=== PATIENT | male | born 1975 | race Caucasian/White ===

== ENCOUNTER 2024-12-03 21:06 | Observation (INO) | payer BC, MEDICAID, SELFPAY ==
[2024-12-03 21:07] VITALS: BP 153/106; PULSE 86; RESP 18; TEMP 36.3; O2SAT 96
--- NOTE | 2024-12-03 21:19 | W.ED.ABDPA2 ---
HPI - Abdominal Pain General: Chief Complaint: Abdominal Pain Stated Complaint: POSSIBLE UTI Time Seen by Provider: 12/03/24 21:08 History of Present Illness: 49-year-old male with history of alcohol abuse and pancreatitis who presents the emergency room by ambulance from [facility] with abdominal pain. He says he was recently discharged from [place] with pancreatitis. He is continuing to have epigastric pain with no nausea or vomiting. He has not had anything to drink recently he says. No diarrhea. No chest pain. No altered mental status. No fevers. Related Data Home Medications ?Medication ?Instructions ?Recorded ?Confirmed buprenorphine 4 mg-naloxone 1 mg 1 film buccal Q24H 11/30/24 11/30/24 sublingual film (Suboxone) carvedilol 3.125 mg tablet 3.125 mg PO BID 11/30/24 11/30/24 lisinopril 20 mg tablet 20 mg PO BID 11/30/24 11/30/24 metoprolol tartrate 25 mg tablet 25 mg PO DAILY 11/30/24 11/30/24 Previous Rx's ?Medication ?Instructions ?Recorded ondansetron 4 mg disintegrating 4 mg PO Q8H PRN nausea and 11/30/24 tablet vomiting #10 tabs tramadol 50 mg tablet 50 mg PO Q6H PRN abdomen pain #14 11/30/24 tabs Allergies Allergy/AdvReac Type Severity Reaction Status Date / Time ketorolac (From Toradol) Allergy Severe rash Verified 12/03/24 21:12 meperidine (From Demerol) Allergy Severe rash Verified 12/03/24 21:12 Sulfa (Sulfonamide Allergy Severe ALGY-Bliste Verified 12/03/24 21:12 Antibiotics) r Review of Systems Narrative: Constitutional symptoms: Negative except as documented in HPI. Skin symptoms: Negative except as documented in HPI. Eye symptoms: Negative except as documented in HPI. ENMT symptoms: Negative except as documented in HPI. Respiratory symptoms: Negative except as documented in HPI. Cardiovascular symptoms: Negative except as documented in HPI. Gastrointestinal symptoms: Negative except as documented in HPI. Genitourinary symptoms: Negative except as documented in HPI. Musculoskeletal symptoms: Negative except as documented in HPI. Neurologic symptoms: Negative except as documented in HPI. Psychiatric symptoms: Negative except as documented in HPI. Endocrine symptoms: Negative except as documented in HPI. PFSH ED PFSH: Medical History Abdominal pain Pancreatitis Social History Smoking and tobacco/nicotine status: current every day tobacco/nicotine user Physical Exam Narrative: EXAM NARRATIVE: General: Alert, no acute distress. Skin: Warm, dry. Head: Normocephalic, atraumatic. Neck: Supple, trachea midline. Eye: Extraocular movements are intact. Ears, nose, mouth and throat: mucosa moist. Cardiovascular: Regular, Normal peripheral perfusion. Respiratory: Lungs are clear to auscultation, respirations are non-labored, breath sounds are equal, Symmetrical chest wall expansion. Gastrointestinal: Soft, epigastric pain, Non distended Musculoskeletal: Normal ROM, no deformity. Neurological: Alert and oriented, No focal neurological deficit observed. Psychiatric: Cooperative, appropriate mood & affect. Course Vital Signs: Vital signs: Vital Signs Temperature 97.4 F L 12/03/24 21:07 Pulse Rate 86 12/04/24 00:30 Respiratory Rate 18 12/03/24 21:07 Blood Pressure 130/93 12/04/24 00:30 Pulse Oximetry 96 12/04/24 00:30 Oxygen Delivery Me thod Room Air 12/03/24 21:07 MDM - Abdominal Pain Medical Decision Making Medical decision making: Differential diagnosis including but not limited to and based on the above HPI, review of systems and physical exam: In this patient with epigastric pain differential would include cholelithiasis or cholecystitis. Hepatitis. Diverticulitis. Constipation. UTI. colitis. small bowel obstruction. crohn's flare. pancreatitis. gastritis. peptic ulcer. also concern for acute cardiac event. Orders placed to evaluate differential diagnosis based on the above differential, HPI and physical exam Lab Review: Laboratory results were reviewed and interpreted by myself the emergency room physician. No leukocytosis. No anemia. No renal failure. Glucose is quite elevated around 500 with a resultant Erinn hyponatremia with a sodium of 126. Lipase is mildly elevated at 250. CT of the abdomen pelvis with contrast: Cholecystolithiasis without evidence of cholecystitis or biliary obstruction. No other acute process. Particularly no acute pancreatitis. No pancreatic cyst. This was reviewed and interpreted by myself the emergency room physician. I also reviewed the radiology report. I reviewed the patient's medical record. Received records from [facility]. Patient had an MRCP that had showed some sort of cystic structure but no MRCP was done. None recommended for 6 to 8 weeks. He had been admitted for DKA and pancreatitis. CT during his stay there did show signs of pancreatitis. However today's CT does not but his lipase is more elevated than it was there. He had a lipase of 118 there. Reexamination: Patient remained stable. No increased work of breathing. No altered mental status. No focal motor deficits. Consultation: I spoke with Dr. Lange who is on-call for the hospitalist service who agrees to admission. Assessment and plan: Abdominal pain Acute on chronic pancreatitis Hyperglycemia Dehydration ?Normal saline bolus, IV insulin, IV Tylenol -I discussed the patient with the hospitalist on-call who is admitting the patient. - Discussed findings and plan with patient. Answered any questions. - All laboratory values were reviewed and interpreted personally by myself, the ER physician - All imaging was reviewed and interpreted personally by myself, the ER physician. - Evaluation and treatment of this problem were appropriate in the emergency setting Lab Data 12/03/24 22:50 12/03/24 22:50 Labs/Radiology: Radiology Impressions Abdomen/Pelvis CT 12/03/24 23:09 IMPRESSION: 1. Cholecystolithiasis without evidence of cholecystitis or biliary obstruction. 2. No evidence of acute abdominal or pelvic process. Laboratory Results WBC 7.96 10^3/uL (3.29-11.43) 12/03/24 22:50 RBC 3.74 10^6/uL (3.85-5.65) L 12/03/24 22:50 Hgb 11.90 g/dL (11.27-16.99) 12/03/24 22:50 Hct 32.4 % (37-53) L 12/03/24 22:50 MCV 86.6 fl (82-101) 12/03/24 22:50 MCH 31.8 pg (27-33) 12/03/24 22:50 MCHC 36.7 g/dL (30-55) 12/03/24 22:50 RDW 12.9 % (12.1-15.1) 12/03/24 22:50 Plt Count 300 10^3/cmm (157-399) 12/03/24 22:50 MPV 8.8 fL (7.4-10.4) 12/03/24 22:50 Neut % (Auto) 52.5 % 12/03/24 22:50 Lymph % (Auto) 31.8 % 12/03/24 22:50 Swain % (Auto) 9.9 % 12/03/24 22:50 Eos % (Auto) 4.3 % 12/03/24 22:50 Baso % (Auto) 1.0 % 12/03/24 22:50 Neut # (Auto) 4.18 10^3/uL (1.8-7.7) 12/03/24 22:50 Lymph # (Auto) 2.5 10^3/uL (0.8-4.8) 12/03/24 22:50 Swain # (Auto) 0.8 10^3/uL (0.2-0.9) 12/03/24 22:50 Eos # (Auto) 0.3 10^3/uL (0.0-0.8) 12/03/24 22:50 Baso # (Auto) 0.1 10^3/uL (0.0-0.1) 12/03/24 22:50 Nucleated RBC % (auto) 0 % 12/03/24 22:50 Nucleated RBCs # 0.0 /100WBC 12/03/24 22:50 Specimen Type Arterial 12/04/24 01:04 Sample Site Radial, right 12/04/24 01:04 ABG pH 7.43 (7.35-7.45) 12/04/24 01:04 ABG pCO2 37.7 mmHg (35-45) 12/04/24 01:04 ABG pO2 60.8 mmHg (80.0-100.0) L 12/04/24 01:04 ABG PO2/FiO2 Ratio 289 12/04/24 01:04 ABG HCO3 24.9 mmol/L (22-26) 12/04/24 01:04 ABG O2 Saturation 93.0 12/04/24 01:04 ABG Base Excess 0.7 mmol/L (-2.0-2.0) 12/04/24 01:04 Diego Test Pos 12/04/24 01:04 A-a O2 Gradient 5.4 mmHg (5-10) 12/04/24 01:04 Hematocrit 37.4 % (42-52) L 12/04/24 01:04 Hgb O2 Saturation 91.1 % (95-100) L 12/04/24 01:04 Carboxyhemoglobin 2.1 %THgb (0.4-20.1) 12/04/24 01:04 Methemoglobin 0.0 % (0.4-1.5) L 12/04/24 01:04 Total Hemoglobin 12.2 g/dL (14-18) L 12/04/24 01:04 Sodium 130.0 mmol/L (131-143) L 12/04/24 01:04 Potassium 3.1 mmol/L (3.5-5.0) L 12/04/24 01:04 Glucose 320.0 mg/dL (70-115) H 12/04/24 01:04 Ionized Calcium 1.2 mmol/L (1.1-1.4) 12/04/24 01:04 O2 Delivery Device Room air 12/04/24 01:04 FiO2 21.0 % 12/04/24 01:04 Cementing Bulk Material Operator ID Ed 12/04/24 01:04 Sodium 126 mmol/L (136-145) L 12/03/24 22:50 Potassium 3.8 mmol/L (3.5-5.1) 12/03/24 22:50 Chloride 93 mmol/L (98-107) L 12/03/24 22:50 Carbon Dioxide 19 mmol/L (22-29) L 12/03/24 22:50 Anion Gap 17.8 (5-19) 12/03/24 22:50 BUN 6 mg/dL (6-20) 12/03/24 22:50 Creatinine 0.6 mg/dL (0.7-1.2) L 12/03/24 22:50 GFR Calculation 143.2 mL/min (90-130) H 12/03/24 22:50 Glucose 468 mg/dL (65-115) H 12/03/24 22:50 POC Glucose 325 mg/dL (70-110) H 12/04/24 01:19 Calculated Osmolality 280 mOsm/kg (285-295) L 12/03/24 22:50 Lactic Acid 0.9 mmol/L (0.5-2.2) 12/03/24 22:50 Calcium 8.5 mg/dL (8.5-10.5) 12/03/24 22:50 Total Bilirubin 0.3 mg/dL (0.15-1.2) 12/03/24 22:50 AST 14 U/L (0-40) 12/03/24 22:50 ALT 13 U/L (0-41) 12/03/24 22:50 Alkaline Phosphatase 85 U/L (40-130) 12/03/24 22:50 Total Protein 6.3 g/dL (6.6-8.7) L 12/03/24 22:50 Albumin 3.6 g/dL (3.5-5.2) 12/03/24 22:50 Globulin 2.7 g/dL (1.3-4.6) 12/03/24 22:50 Triglycerides 147 mg/dL (0-150) 12/03/24 22:50 Lipase 242 U/L (13-60) H 12/03/24 22:50 Urine Color Yellow (Yellow) 12/03/24 21:38 Urine Appearance Clear (CLEAR) 12/03/24 21:38 Urine pH 6.5 (5-7) 12/03/24 21:38 Ur Specific [place] 1.040 (1.005-1.030) H 12/03/24 21:38 Urine Protein Negative (Negative) 12/03/24 21:38 Urine Glucose (UA) 3+ (Normal) H 12/03/24 21:38 Urine Ketones Trace (Negative) 12/03/24 21:38 Urine Blood Negative (Negative) 12/03/24 21:38 Urine Nitrate Negative (Negative) 12/03/24 21:38 Urine Bilirubin Negative (Negative) 12/03/24 21:38 Urine Urobilinogen 0.2 mg/dL (Negative) 12/03/24 21:38 Ur Leukocyte Esterase Negative (Negative) 12/03/24 21:38 Urine RBC None /hpf (0-2) 12/03/24 21:38 Urine WBC None /hpf (0-5) 12/03/24 21:38 Ur Squamous Epith Cells 0-4 /hpf (0-5) H 12/03/24 21:38 Amorphous Sediment Not Reportable 12/03/24 21:38 Urine Bacteria None /hpf (NONE) 12/03/24 21:38 Urine Opiates Screen Negative ng/mL (Negative) 12/03/24 21:38 Ur Barbiturates Screen Negative ng/mL (Negative) 12/03/24 21:38 Ur Phencyclidine Scrn Negative ng/mL (Negative) 12/03/24 21:38 Ur Amphetamines Screen Negative ng/mL (Negative) 12/03/24 21:38 U Benzodiazepines Scrn Negative ng/mL (Negative) 12/03/24 21:38 Urine Cocaine Screen Negative ng/mL (Negative) 12/03/24 21:38 U Marijuana (THC) Screen Negative ng/mL (Negative) 12/03/24 21:38 Ethyl Alcohol < 10 mg/dL (0-10) 12/03/24 22:50 Serum Ketones Positive (Negative) H 12/03/24 22:50 All radiology interpretation(s) finalized by discharge Discharge Plan Discharge Patient Disposition: Admitted As Inpatient Clinical Impression: Hyperglycemia, Dehydration Pancreatitis Qualifiers: Chronicity: acute Pancreatitis type: alcohol induced Acute pancreatitis complication: unspecified Qualified Code(s): K85.20 - Alcohol induced acute pancreatitis without necrosis or infection Abdominal pain Qualifiers: Abdominal location: generalized Qualified Code(s): R10.84 - Generalized abdominal pain Condition: Stable Coding Level of Care Code ED Road Design Engineer for Guy Collzao
--- NOTE | 2024-12-03 21:47 | ECG_ITS ---
[employer] Test Date: 2024-12-03 Pat Name: Oni Barrett Department: Room: Gender: Male Establishment Guide: : 1975 Requested By: Deborah Howe Order Number: [id number] Martha MD: ELVIS RED Measurements Intervals [place] Rate: 89 P: -3 MA: 143 QRS: -40 QRSD: 96 T: 18 QT: 339 QTc: 413 Interpretive Statements SINUS RHYTHM LEFT AXIS DEVIATION [QRS AXIS < -30] PATTERN CONSISTENT WITH PULMONARY DISEASE MODERATE VOLTAGE CRITERIA FOR LVH, CONSIDER NORMAL VARIANT [MEETS CRITERIA IN ONE OF: R(aVL), S(V1), R(V5), R(V5/V6)+S(V1)] No previous ECG available for comparison Electronically Signed On 12-04-2024 23:34:16 BOILER TENDER by ELVIS RED [email or web address]
[2024-12-03 21:50] LABS: Bilirubin Urine Negative (Negative); Blood Urine Negative (Negative); Glucose Urine UA 3+ (Normal); Ketones Urine Trace (Negative); Leukocyte Esterase Urine Negative (Negative); Nitrate Urine Negative (Negative); Protein Urine Negative (Negative); Urine Appearance Clear (CLEAR); Urine Color Yellow (Yellow); Urobilinogen Urine 0.2 mg/dL (Negative); pH Urine 6.5 (5-7)
[2024-12-03 21:57] LABS: Amphetamines Screen Urine Negative (Negative); Barbiturates Screen Urine Negative (Negative); Benzodiazepines Screen Urine Negative (Negative); Cocaine Screen Urine Negative (Negative); Opiate Screen Urine Negative (Negative); PCP Screen Urine Negative (Negative); THC Screen Urine Negative (Negative)
[2024-12-03 22:10] LABS: Squamous Epithelial Cell Urine 0-4 /hpf (0-5); UA Manual Slide Review YES
[2024-12-03 22:56] LABS: Basophils # 0.1 10^3/uL (0.0-0.1); Eosinophils # 0.3 10^3/uL (0.0-0.8); Eosinophils % 4.3 %; Hematocrit 32.4 % (37-53); Lymphocytes # 2.5 10^3/uL (0.8-4.8); Lymphocytes % 31.8 %; Mean Corpuscular HGB Conc 36.7 g/dL (30-55); Mean Corpuscular Hemoglobin 31.8 pg (27-33); Mean Corpuscular Volume 86.6 fl (82-101); Mean Platelet Volume 8.8 fL (7.4-10.4); Monocytes # 0.8 10^3/uL (0.2-0.9); Monocytes % 9.9 %; Neutrophils # 4.18 10^3/uL (1.8-7.7); Neutrophils % 52.5 %; Nucleated Red Blood Cells % 0 %; Platelet Count 300 10^3/cmm (157-399); Red Blood Count 3.74 10^6/uL (3.85-5.65); Red Cell Distribution Width 12.9 % (12.1-15.1); White Blood Count 7.96 10^3/uL (3.29-11.43)
[2024-12-03] MEDS: acetaminophen 1,000 MG/100 ML PIGGYBACK 400 MG IV (23:09)
--- NOTE | 2024-12-03 23:09 | CTR_ITS ---
PROCEDURE INFORMATION: Exam: CT Abdomen And Pelvis With Contrast Exam date and time: 12/03/2024 11:35 PM Age: 49 years old Clinical indication: Abdominal pain; Periumbilical TECHNIQUE: Imaging protocol: Computed tomography of the abdomen and pelvis with contrast. Radiation optimization: All CT scans at this facility use at least one of these dose optimization techniques: automated exposure control; mA and/or kV adjustment per patient size (includes targeted exams where dose is matched to clinical indication); or iterative reconstruction. Contrast material: OMNI 350; Contrast volume: 100 ml; Contrast route: INTRAVENOUS (IV); COMPARISON: No relevant prior studies available. RADIATION DOSE METRICS: Total DLP (mGy-cm): 860.73 FINDINGS: Lungs: Bibasilar dependent atelectasis or scar. Liver: Normal. No mass. Gallbladder and biliary ducts: Multiple gallstones are present in an otherwise normal-appearing gallbladder. No evidence of biliary obstruction. Pancreas: Normal. No ductal dilation. Spleen: Normal. No splenomegaly. Adrenal glands: Normal. No mass. Kidneys and ureters: Normal. No hydronephrosis. Stomach and bowel: Unremarkable. No obstruction. No mucosal thickening. Appendix: Appendicolith are noted in an otherwise normal-appearing appendix. Intraperitoneal space: Unremarkable. No free air. No significant fluid collection. Vasculature: Aortoiliac atherosclerotic disease is seen without evidence of aneurysm. Incidental congenital accessory left IVC. Lymph nodes: Unremarkable. No enlarged lymph nodes. Urinary bladder: Unremarkable as visualized. Reproductive: Unremarkable as visualized. Bones/joints: Unremarkable. No acute fracture. Soft tissues: Unremarkable. CT/CT abdomen pelvis w con* [id number] IMPRESSION: 1. Cholecystolithiasis without evidence of cholecystitis or biliary obstruction. 2. No evidence of acute abdominal or pelvic process.
[2024-12-03 23:15] LABS: Alanine Aminotransferase 13 U/L (0-41); Albumin Level 3.6 g/dL (3.5-5.2); Alcohol Level < 10 mg/dL (0-10); Alkaline Phosphatase 85 U/L (40-130); Anion Gap 17.8 (5-19); Aspartate Amino Transferase 14 U/L (0-40); Blood Urea Nitrogen 6 mg/dL (6-20); Calcium 8.5 mg/dL (8.5-10.5); Carbon Dioxide 19 mmol/L (22-29); Chloride 93 mmol/L (98-107); Creatinine Clr Calc Pharmacy 173.2893; Globulin 2.7 g/dL (1.3-4.6); Glomerular Filtration Rate 143.2 mL/min (90-130); Glucose 468 mg/dL (65-115); Lipase 242 U/L (13-60); Osmolality Calculated 280 mOsm/kg (285-295); Potassium 3.8 mmol/L (3.5-5.1); Sodium 126 mmol/L (136-145); Total Bilirubin 0.3 mg/dL (0.15-1.2); Total Protein 6.3 g/dL (6.6-8.7)
[2024-12-03 23:16] LABS: Lactic Sepsis W/Reflex 0.9 mmol/L (0.5-2.2)
[2024-12-03 23:30] VITALS: BP 137/98; PULSE 83; O2SAT 98
[2024-12-03] MEDS: iohexol 350 mg/mL 500 mL Btl (per mL) IV (23:42)
[2024-12-04] VITALS (16 sets, daily range): BP systolic 117–145; BP diastolic 71–98; PULSE 76–96; RESP 15–20; TEMP 36.4–36.8; O2SAT 92–97
[2024-12-04] MEDS: insulin regular-human 100 units/1 mL 10 UNIT IVP (00:31)
[2024-12-04] MEDS: sodium chloride 0.9% 1,000 ML 999 ML IV (00:37)
[2024-12-04 00:53] LABS: Glucose Point of Care 425 mg/dL (70-110)
[2024-12-04 01:14] LABS: ABG PCO2 37.7 mmHg (35-45); ABG PH Result 7.43 (7.35-7.45); Alveolar-Arterial Oxygen Gradi 5.4 mmHg (5-10); Arterial Blood Gas Hematocrit 37.4 % (42-52); Base Excess ABG 0.7 mmol/L (-2.0-2.0); Blood Gas Allen Test Pos; Blood Gas Sample Type Arterial; Carboxyhemoglobin 2.1 %THgb (0.4-20.1); HCO3 ABG 24.9 mmol/L (22-26); HGB O2 Sat 91.1 % (95-100); Ionized Calcium Level - ABG 1.2 mmol/L (1.1-1.4); PO2 ABG 60.8 mmHg (80.0-100.0); Potassium Level - ABG 3.1 mmol/L (3.5-5.0); Total Hemoglobin 12.2 g/dL (14-18)
[2024-12-04 01:14] LABS: Ketone (Acetest) Serum Positive (Negative)
[2024-12-04 01:15] LABS: Blood Gas Operator Identificat ED; Blood Gas Sample Site Radial, right; Oxygen Device ROOM AIR; PO2 FiO2 Ratio Arterial Blood 289
[2024-12-04 01:23] LABS: Glucose Point of Care 325 mg/dL (70-110)
[2024-12-04 01:31] LABS: Triglycerides 147 mg/dL (0-150)
--- NOTE | 2024-12-04 01:51 | PM.HP ---
Providers/Chief Complaint Chief Complaint: POSSIBLE UTI History of Present Illness Oni Barrett is a 49 year old male who presented from rehab center with chief complaint of epigastric pain. 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 Patient is stating that he has had 3 flares of pancreatitis in last 2 weeks, his last drink of alcohol was roughly 2 weeks ago, he has not noticed any fever or vomiting this time but stating that he has been nauseous and experiencing epigastric pain Patient was asking for morphine and Dilaudid stating that tramadol does not help at all he has received IV Tylenol in the ER Review of Systems Const: Denies: fever(s) Eyes: Denies: change in vision ENMT: Denies: throat pain Card: Denies: chest pain Resp: Denies: dyspnea GI: Reports: abdominal pain and nausea : Denies: flank pain Medications/Allergies Home Medications ?Medication ?Instructions ?Recorded ?Confirmed ?Last Taken ?Type buprenorphine 4 mg-naloxone 1 mg 1 film buccal Q24H 11/30/24 11/30/24 Unknown History sublingual film (Suboxone) carvedilol 3.125 mg tablet 3.125 mg PO BID 11/30/24 11/30/24 Unknown History lisinopril 20 mg tablet 20 mg PO BID 11/30/24 11/30/24 Unknown History metoprolol tartrate 25 mg tablet 25 mg PO DAILY 11/30/24 11/30/24 Unknown History ondansetron 4 mg disintegrating 4 mg PO Q8H PRN nausea and 11/30/24 11/30/24 Unknown Rx tablet vomiting #10 tabs tramadol 50 mg tablet 50 mg PO Q6H PRN abdomen pain #14 11/30/24 11/30/24 Unknown Rx tabs Allergies Allergy/AdvReac Type Severity Reaction Status Date / Time ketorolac (From Toradol) Allergy Severe rash Verified 12/03/24 21:12 meperidine (From Demerol) Allergy Severe rash Verified 12/03/24 21:12 Sulfa (Sulfonamide Allergy Severe ALGY-Bliste Verified 12/03/24 21:12 Antibiotics) r PFSH Acute PFSH: Medical History Abdominal pain Pancreatitis Social History Smoking and tobacco/nicotine status: current every day tobacco/nicotine user Vitals/I&O/Wt Last Vital Signs Temp 97.4 F L 12/03/24 21:07 Pulse 86 12/04/24 00:30 Resp 18 12/03/24 21:07 BP 130/93 12/04/24 00:30 Pulse Ox 96 12/04/24 00:30 O2 Del Method Room Air 12/03/24 21:07 12/03/24 12/03/24 12/04/24 14:59 22:59 06:59 Intake Total 125 / 125 100 / 225 Balance 125 / 125 100 / 225 Weight last 48 hrs Weight 96.162 kg Physical Exam Narrative: Patient is awake and alert Euvolemic Epigastric tenderness No sign of peritonitis S1, S2 Tachycardia Nonfocal neuroexam Currently room air Hemodynamically stable Pleasant and cooperative GCS 15 Nonfocal neuroexam Data 12/03/24 22:50 12/03/24 22:50 A&P Assessment and plan (1) Abdominal pain: Qualifiers: Abdominal location: generalized Qualified Code(s): R10.84 - Generalized abdominal pain (2) Pancreatitis: Qualifiers: Chronicity: acute Pancreatitis type: alcohol induced Acute pancreatitis complication: unspecified Qualified Code(s): K85.20 - Alcohol induced acute pancreatitis without necrosis or infection (3) Hyperglycemia: Plan Recurrent pancreatitis Recent MRCP did not show any choledocholithiasis CT abdomen pelvis consistent with multiple gallstones, patient will need cholecystectomy electively Last alcoholic drink was 2 weeks ago Concern for pseudocyst No sign of septic presentation or necrotic pancreas Hold off antibiotics Patient has opiate addiction currently coming from rehab, continue Suboxone and tramadol avoiding opioids No active emesis holding off on IV fluids, continue clear liquid diet with insulin sliding scale Rule out DKA Hypertension continue antibiotics regimen Full code Clear liquid diet DVT prophylaxis Lovenox PDMP PDMP Reviewed: Not Reviewed Attestations Medical Necessity Statement*: Anticipating discharge within 48 hours Diagnoses Generalized abdominal pain R10.84 Abdominal location: generalized Alcohol-induced acute pancreatitis, unspecified complication status K85.20 Chronicity: acute Pancreatitis type: alcohol induced Acute pancreatitis complication: unspecified Hyperglycemia R73.9
[2024-12-04] MEDS: TRAMadol 50 mg Tablet PO ×3 (02:11→13:35)
[2024-12-04 02:51] LABS: Glucose Point of Care 333 mg/dL (70-110)
[2024-12-04] MEDS: morphine 4 mg/mL SDV 1 mL 2 MG IVP ×3 (03:05→14:22)
[2024-12-04 04:14] LABS: Alanine Aminotransferase 13 U/L (0-41); Albumin Level 3.6 g/dL (3.5-5.2); Alkaline Phosphatase 81 U/L (40-130); Anion Gap 14.6 (5-19); Aspartate Amino Transferase 14 U/L (0-40); Blood Urea Nitrogen 5 mg/dL (6-20); Calcium 8.3 mg/dL (8.5-10.5); Carbon Dioxide 21 mmol/L (22-29); Chloride 97 mmol/L (98-107); Creatinine Clr Calc Pharmacy 207.9471; Globulin 2.3 g/dL (1.3-4.6); Glomerular Filtration Rate 176.7 mL/min (90-130); Glucose 330 mg/dL (65-115); Magnesium 1.8 mg/dL (1.7-2.3); Osmolality Calculated 278 mOsm/kg (285-295); Potassium 3.6 mmol/L (3.5-5.1); Sodium 129 mmol/L (136-145); Total Bilirubin 0.3 mg/dL (0.15-1.2); Total Protein 5.9 g/dL (6.6-8.7)
[2024-12-04 04:18] LABS: Basophils # 0.1 10^3/uL (0.0-0.1); Basophils % 0.8 %; Eosinophils # 0.3 10^3/uL (0.0-0.8); Eosinophils % 4.7 %; Hematocrit 30.3 % (37-53); Lymphocytes # 1.8 10^3/uL (0.8-4.8); Lymphocytes % 28.7 %; Mean Corpuscular HGB Conc 36.3 g/dL (30-55); Mean Corpuscular Hemoglobin 31.9 pg (27-33); Mean Corpuscular Volume 87.8 fl (82-101); Monocytes # 0.6 10^3/uL (0.2-0.9); Monocytes % 8.8 %; Neutrophils # 3.56 10^3/uL (1.8-7.7); Neutrophils % 56.2 %; Nucleated Red Blood Cells % 0 %; Platelet Count 265 10^3/cmm (157-399); Red Blood Count 3.45 10^6/uL (3.85-5.65); Red Cell Distribution Width 12.9 % (12.1-15.1); White Blood Count 6.34 10^3/uL (3.29-11.43)
[2024-12-04 06:42] LABS: Glucose Point of Care 356 mg/dL (70-110)
[2024-12-04] MEDS: insulin lispro 100 unit/1 mL SUBCUT ×3 (08:44→22:26)
[2024-12-04] MEDS: pantoprazole 40 mg SDV IVP ×2 (08:46→17:18)
[2024-12-04] MEDS: enoxaparin 40 mg/0.4 mL Syringe SUBCUT (08:47)
[2024-12-04] MEDS: lisinopril 20 mg Tablet PO ×2 (08:47→17:18)
--- NOTE | 2024-12-04 09:50 | PC.PHAR ---
Addendum entered by Victoria Calderon 12/04/24 09:53: [facility] filled meds in Rehab Original Note: Pt states he took medications yesterday am. Fills at [facility] (list was faxed over) and pt was in rehab in [facility], where several meds were added. Combined the 2 lists.
--- NOTE | 2024-12-04 10:16 | PC.CHAP ---
Pastoral Care Encounter/Spiritual Assessment Type of Contact [] Declined metal fabricating supervisor visit [] Patient/Family/Request visit [] Outpatient visit [] Follow-up visit [] Physician referral [] Code/Alert [x] Routine visit [] Staff referral [] Actively dying [] Patient sleeping [] Family support [] [] Out of room [] Palliative care [] [] Receiving care in room [] Pre-surgical visit [] Trauma [] Long length of stay [] ICU visit [] Other: Relational/Emotional Strength [x] Patient feels connected with others/family/visitors/staff [] Distress [] Loneliness/isolation [] Abandonment Spirituality of Patient [x] Person of Lo [] Attends Mormonism of their Lo [x] Believes in Prayer [] Reads Bible or Buddhist materials [] There are Spiritual issues to be addressed [employer] Interventions [x] Prayer [x] Active listening [] Non-anxious presence [x] Spiritual/emotional support [] Crisis/trauma care [] Spiritual counseling [] Bereavement support [] Provided bereavement packet [] Provided Bible/devotional materials [] Provided toy/stuffed animal, coloring book to patient or family member [] Provided Communion [] Anointing/[place] [] Salvation [x] Completed spiritual assessment [] Other: Impact on Illness or Injury [] Angry [] Fearful [] Anxious [] Often cries [] Exhaustion [] Unable to work [] Unable to attend bahai [] Unable to walk/stand [] Unable to read [] Unable to drive [] Unable to eat/drink [] Unable to sleep [] Unable to be with family [] Patient intubated [] Other: Summary Time spent with patient 5 min
[2024-12-04 11:24] LABS: Glucose Point of Care 273 mg/dL (70-110)
[2024-12-04] MEDS: HYDROcodone-acetaminophen 5-325 mg Tablet 1 TAB PO (13:21)
--- NOTE | 2024-12-04 13:57 | P.MISC_ITS ---
Miscellaneous Note Note: Seen this morning. Had a discussion with patient regarding his pain medications. Will be going on to morphine 2 mg every 4 hours as needed and hydrocodone 5 mg every 8 hours as needed. Patient is at [facility] rehab at this point. He states he was on Suboxone in the past however is no longer on it for the last 2 weeks. He says eventually he will be going back on it. He said ever since he got pancreatitis he has been off his Suboxone. That is currently not a home medication. Patient requesting for solid food going forward along with pain medication. However discussed with him that if he continues to tolerate clear liquids this morning we may try GI soft diet for dinner to which she is agreeable to. We will continue current management for now. If patient is able to tolerate GI soft later on today may consider discharge home tomorrow.
--- NOTE | 2024-12-04 17:07 | PC.NURSE ---
Shift summary: uneventful shift. Has tolerated a clear liquid diet well and progressed to GI soft. Frequent complaints of pain, hydrocodone and morphine added.
--- NOTE | 2024-12-04 17:52 | PC.NURSE ---
Tolerated GI soft diet well. Ate 100%, no complaints of increased abdominal pain or nausea.
[2024-12-04 20:55] LABS: Glucose Point of Care 327 mg/dL (70-110)
[2024-12-05 04:00] VITALS: BP 141/91; PULSE 88; RESP 15; TEMP 36.9; O2SAT 95
[2024-12-05 04:36] VITALS: RESP 18
[2024-12-05] MEDS: morphine 4 mg/mL SDV 1 mL 2 MG IVP ×2 (04:36→08:53)
[2024-12-05 04:59] LABS: Basophils # 0.1 10^3/uL (0.0-0.1); Basophils % 0.9 %; Eosinophils # 0.3 10^3/uL (0.0-0.8); Eosinophils % 3.1 %; Lymphocytes # 1.8 10^3/uL (0.8-4.8); Mean Corpuscular Hemoglobin 31.8 pg (27-33); Mean Corpuscular Volume 90.9 fl (82-101); Mean Platelet Volume 9.7 fL (7.4-10.4); Monocytes # 0.8 10^3/uL (0.2-0.9); Neutrophils # 6.41 10^3/uL (1.8-7.7); Neutrophils % 68.4 %; Nucleated Red Blood Cells % 0 %; Platelet Count 316 10^3/cmm (157-399); Red Blood Count 3.96 10^6/uL (3.85-5.65); Red Cell Distribution Width 13.2 % (12.1-15.1); White Blood Count 9.37 10^3/uL (3.29-11.43)
[2024-12-05 05:15] LABS: Anion Gap 15.8 (5-19); Blood Urea Nitrogen 3 mg/dL (6-20); Calcium 8.3 mg/dL (8.5-10.5); Carbon Dioxide 22 mmol/L (22-29); Chloride 104 mmol/L (98-107); Creatinine Clr Calc Pharmacy 173.4797; Glomerular Filtration Rate 143.2 mL/min (90-130); Glucose 361 mg/dL (65-115); Osmolality Calculated 297 mOsm/kg (285-295); Potassium 3.8 mmol/L (3.5-5.1); Sodium 138 mmol/L (136-145)
[2024-12-05 06:16] LABS: Glucose Point of Care 384 mg/dL (70-110)
[2024-12-05] MEDS: HYDROcodone-acetaminophen 5-325 mg Tablet 1 TAB PO (06:29)
[2024-12-05 07:49] VITALS: BP 136/87; PULSE 84; RESP 16; TEMP 36.8; O2SAT 96
[2024-12-05 07:53] VITALS: PULSE 82; RESP 16; O2SAT 98
[2024-12-05] MEDS: pantoprazole 40 mg SDV IVP (08:45)
[2024-12-05] MEDS: insulin lispro 100 unit/1 mL SUBCUT (08:46)
[2024-12-05] MEDS: carvedilol 3.125 mg Tablet PO (08:46)
[2024-12-05] MEDS: lisinopril 20 mg Tablet PO (08:46)
[2024-12-05 08:53] VITALS: RESP 18
[2024-12-05 12:16] VITALS: BP 136/87; PULSE 84; RESP 16; TEMP 36.8; O2SAT 96
--- NOTE | 2024-12-05 14:13 | PM.DCS ---
Discharge Providers Date of Admission: 12/04/24 01:55 Date of Discharge: December 05, 2024 Attending Provider at Admission: Luisana Lange MD Attending Provider at Discharge: Marilin Veliz MD Diagnoses at Discharge Discharge Diagnosis (1) Abdominal pain: Status: Resolved Qualifiers: Abdominal location: generalized Qualified Code(s): R10.84 - Generalized abdominal pain (2) Pancreatitis: Status: Resolved Qualifiers: Acute pancreatitis complication: unspecified Chronicity: acute Pancreatitis type: alcohol induced Qualified Code(s): K85.20 - Alcohol induced acute pancreatitis without necrosis or infection (3) Hyperglycemia: Status: Resolved Reason for Visit Reason for Visit: POSSIBLE UTI Hospital Course Hospital Course Admitted for pancreatitis. Was given IV fluids and IV pain medication. Was able to tolerate diet and was discharged back to rehab next day. Patient stable at time of discharge and eating and drinking okay. Denies any abdominal pain at this time. Physical Exam Narrative: Abdomen soft nontender Normal S1-S2 Clear to auscultation bilaterally No acute distress sitting up in bed appearing comfortable requesting to go home. Discharge Data Studies Completed and Pending Completed Studies During Hospitalization Category Date Time Status CT abdomen pelvis w con* [id number] Stat Cat Scan 12/03/24 23:09 Completed Radiology Impressions Abdomen/Pelvis CT 12/03/24 23:09 IMPRESSION: 1. Cholecystolithiasis without evidence of cholecystitis or biliary obstruction. 2. No evidence of acute abdominal or pelvic process. Laboratory Results WBC 9.37 10^3/uL (3.29-11.43) 12/05/24 04:12 RBC 3.96 10^6/uL (3.85-5.65) 12/05/24 04:12 Hgb 12.60 g/dL (11.27-16.99) 12/05/24 04:12 Hct 36.0 % (37-53) L 12/05/24 04:12 MCV 90.9 fl (82-101) 12/05/24 04:12 MCH 31.8 pg (27-33) 12/05/24 04:12 MCHC 35.0 g/dL (30-55) 12/05/24 04:12 RDW 13.2 % (12.1-15.1) 12/05/24 04:12 Plt Count 316 10^3/cmm (157-399) 12/05/24 04:12 MPV 9.7 fL (7.4-10.4) 12/05/24 04:12 Neut % (Auto) 68.4 % 12/05/24 04:12 Lymph % (Auto) 19.0 % 12/05/24 04:12 Ralls % (Auto) 8.0 % 12/05/24 04:12 Eos % (Auto) 3.1 % 12/05/24 04:12 Baso % (Auto) 0.9 % 12/05/24 04:12 Neut # (Auto) 6.41 10^3/uL (1.8-7.7) 12/05/24 04:12 Lymph # (Auto) 1.8 10^3/uL (0.8-4.8) 12/05/24 04:12 Ralls # (Auto) 0.8 10^3/uL (0.2-0.9) 12/05/24 04:12 Eos # (Auto) 0.3 10^3/uL (0.0-0.8) 12/05/24 04:12 Baso # (Auto) 0.1 10^3/uL (0.0-0.1) 12/05/24 04:12 Nucleated RBC % (auto) 0 % 12/05/24 04:12 Nucleated RBCs # 0.0 /100WBC 12/05/24 04:12 Specimen Type Arterial 12/04/24 01:04 Sample Site Radial, right 12/04/24 01:04 ABG pH 7.43 (7.35-7.45) 12/04/24 01:04 ABG pCO2 37.7 mmHg (35-45) 12/04/24 01:04 ABG pO2 60.8 mmHg (80.0-100.0) L 12/04/24 01:04 ABG PO2/FiO2 Ratio 289 12/04/24 01:04 ABG HCO3 24.9 mmol/L (22-26) 12/04/24 01:04 ABG O2 Saturation 93.0 12/04/24 01:04 ABG Base Excess 0.7 mmol/L (-2.0-2.0) 12/04/24 01:04 Diego Test Pos 12/04/24 01:04 A-a O2 Gradient 5.4 mmHg (5-10) 12/04/24 01:04 Hematocrit 37.4 % (42-52) L 12/04/24 01:04 Hgb O2 Saturation 91.1 % (95-100) L 12/04/24 01:04 Carboxyhemoglobin 2.1 %THgb (0.4-20.1) 12/04/24 01:04 Methemoglobin 0.0 % (0.4-1.5) L 12/04/24 01:04 Total Hemoglobin 12.2 g/dL (14-18) L 12/04/24 01:04 Sodium 130.0 mmol/L (131-143) L 12/04/24 01:04 Potassium 3.1 mmol/L (3.5-5.0) L 12/04/24 01:04 Glucose 320.0 mg/dL (70-115) H 12/04/24 01:04 Ionized Calcium 1.2 mmol/L (1.1-1.4) 12/04/24 01:04 O2 Delivery Device Room air 12/04/24 01:04 FiO2 21.0 % 12/04/24 01:04 [employer] Blasting ID Ed 12/04/24 01:04 Sodium 138 mmol/L (136-145) 12/05/24 04:12 Potassium 3.8 mmol/L (3.5-5.1) 12/05/24 04:12 Chloride 104 mmol/L (98-107) 12/05/24 04:12 Carbon Dioxide 22 mmol/L (22-29) 12/05/24 04:12 Anion Gap 15.8 (5-19) 12/05/24 04:12 BUN 3 mg/dL (6-20) L 12/05/24 04:12 Creatinine 0.6 mg/dL (0.7-1.2) L 12/05/24 04:12 GFR Calculation 143.2 mL/min (90-130) H 12/05/24 04:12 Glucose 361 mg/dL (65-115) H 12/05/24 04:12 POC Glucose 384 mg/dL (70-110) H 12/05/24 06:06 Calculated Osmolality 297 mOsm/kg (285-295) H 12/05/24 04:12 Lactic Acid 0.9 mmol/L (0.5-2.2) 12/03/24 22:50 Calcium 8.3 mg/dL (8.5-10.5) L 12/05/24 04:12 Magnesium 1.8 mg/dL (1.7-2.3) 12/04/24 03:51 Total Bilirubin 0.3 mg/dL (0.15-1.2) 12/04/24 03:51 AST 14 U/L (0-40) 12/04/24 03:51 ALT 13 U/L (0-41) 12/04/24 03:51 Alkaline Phosphatase 81 U/L (40-130) 12/04/24 03:51 Total Protein 5.9 g/dL (6.6-8.7) L 12/04/24 03:51 Albumin 3.6 g/dL (3.5-5.2) 12/04/24 03:51 Globulin 2.3 g/dL (1.3-4.6) 12/04/24 03:51 Triglycerides 147 mg/dL (0-150) 12/03/24 22:50 Lipase 242 U/L (13-60) H 12/03/24 22:50 Urine Color Yellow (Yellow) 12/03/24 21:38 Urine Appearance Clear (CLEAR) 12/03/24 21:38 Urine pH 6.5 (5-7) 12/03/24 21:38 Ur Specific [place] 1.040 (1.005-1.030) H 12/03/24 21:38 Urine Protein Negative (Negative) 12/03/24 21:38 Urine Glucose (UA) 3+ (Normal) H 12/03/24 21:38 Urine Ketones Trace (Negative) 12/03/24 21:38 Urine Blood Negative (Negative) 12/03/24 21:38 Urine Nitrate Negative (Negative) 12/03/24 21:38 Urine Bilirubin Negative (Negative) 12/03/24 21:38 Urine Urobilinogen 0.2 mg/dL (Negative) 12/03/24 21:38 Ur Leukocyte Esterase Negative (Negative) 12/03/24 21:38 Urine RBC None /hpf (0-2) 12/03/24 21:38 Urine WBC None /hpf (0-5) 12/03/24 21:38 Ur Squamous Epith Cells 0-4 /hpf (0-5) H 12/03/24 21:38 Amorphous Sediment Not Reportable 12/03/24 21:38 Urine Bacteria None /hpf (NONE) 12/03/24 21:38 Urine Opiates Screen Negative ng/mL (Negative) 12/03/24 21:38 Ur Barbiturates Screen Negative ng/mL (Negative) 12/03/24 21:38 Ur Phencyclidine Scrn Negative ng/mL (Negative) 12/03/24 21:38 Ur Amphetamines Screen Negative ng/mL (Negative) 12/03/24 21:38 U Benzodiazepines Scrn Negative ng/mL (Negative) 12/03/24 21:38 Urine Cocaine Screen Negative ng/mL (Negative) 12/03/24 21:38 U Marijuana (THC) Screen Negative ng/mL (Negative) 12/03/24 21:38 Ethyl Alcohol < 10 mg/dL (0-10) 12/03/24 22:50 Serum Ketones Positive (Negative) H 12/03/24 22:50 Vitals Last Vital Signs Temp 98.3 F 12/05/24 12:16 Pulse 84 12/05/24 12:16 Resp 16 12/05/24 12:16 BP 136/87 12/05/24 12:16 Pulse Ox 96 12/05/24 12:16 O2 Del Method Room Air 12/05/24 07:53 Discharge Plan Discharge Patient Disposition: Xfer Inpatient Rehab Fac Condition: Stable Prescriptions: Continued lisinopril 20 mg tablet 20 mg PO BID metoprolol tartrate 25 mg tablet 25 mg PO DAILY carvedilol 3.125 mg tablet 3.125 mg PO BID Rx Instructions: must administer with a meal/food tramadol 50 mg tablet 50 mg PO Q6H PRN (Reason: abdomen pain) Qty: 14 0RF ondansetron 4 mg tablet,disintegrating 4 mg PO Q8H PRN (Reason: nausea and vomiting) Qty: 10 0RF phentermine 37.5 mg Tablet 18.75 mg PO DAILY Rx Instructions: must administer 30 minutes before or 1-2 hours after breakfast buprenorphine-naloxone [Suboxone] 8-2 mg film 1 film buccal BID atorvastatin 20 mg tablet 20 mg PO BEDTIME hydrocodone-acetaminophen 10-325 mg tablet 1 tab PO Q6H PRN (Reason: Pain) tamsulosin 0.4 mg capsule 0.4 mg PO DAILY amlodipine 10 mg tablet 10 mg PO DAILY buspirone 10 mg tablet 10 mg PO BID docusate sodium 100 mg capsule 100 mg PO DAILY atomoxetine 40 mg capsule 40 mg PO QAM pregabalin 200 mg capsule 200 mg PO TID paliperidone 3 mg tablet extended release 24 hr 3 mg PO DAILY venlafaxine 225 mg tablet extended release 24hr 225 mg PO QAM Invega Sustenna 156 mg/mL syringe 156 mg IM .Q30D Trulicity 4.5 mg/0.5 mL pen injector 4.5 mg SUBCUT Q7D Discharge Orders: Discharge Order (Routine); Ordered 12/05/24 Ordered By: Marilin Veliz Referrals: [facility] [Outside] Discharge Diet: GI Soft Discharge Activity: Resume usual activity Patient Instructions: Pancreatitis (GEN), GI (Gastrointestinal) Soft Diet (GEN), Opioid Safety Discharge Attestations Time Spent in Discharge Care*: less than 30 min Quality Metrics Clinical Quality Measures [ No reported AMI, CVA or VTE this stay] Coding Level of Care Code Acute Code for Chg Fwd Diagnoses Generalized abdominal pain R10.84 Abdominal location: generalized Alcohol-induced acute pancreatitis, unspecified complication status K85.20 Acute pancreatitis complication: unspecified Chronicity: acute Pancreatitis type: alcohol induced Hyperglycemia R73.9
== END 2024-12-05 11:05 ==
LOC: ER 12-04 01:30 → MEDSURG 12-04 06:05
PROVIDERS: Admitting Provider Internal Medicine; Emergency Provider Emergency Medicine; Visit Provider Internal Medicine
DX: K85.20 Alcohol induced acute pancreatitis without necrosis or infection (principal); R73.9 Hyperglycemia, unspecified; F17.210 Nicotine dependence, cigarettes, uncomplicated; Z79.899 Other long term (current) drug therapy; Z88.8 Allergy status to other drugs, medicaments and biological substances; Z88.2 Allergy status to sulfonamides
CPT/HCPCS: 36415; 36416; 36600; 74177; 80048; 80051; 80053; 80306; 80307; 81001; 82009; 82330; 82805; 82962; 83605; 83690; 83735; 84478; 85025; 93005; 96365; 96372; 96375; 96376; 99285; G0378; J0131; J1650; J1815; J2270; J2470; J7030